=== PATIENT | male | born 1965 | race Caucasian/White ===

== ENCOUNTER 2020-01-28 19:21 | Emergency (ER) | payer OTHER ==
[~2020-01-28] VITALS: Ht 170.2 cm; Wt 92.1 kg
[2020-01-28] MEDS ORDERED: ZYRTEC10 M1 PO (19:37)
[2020-01-28] MEDS ORDERED: HYDR1TAB94 PO ×2 (19:38→21:26)
[2020-01-28] MEDS ORDERED: CYCL10 PO (19:38)
[2020-01-28] MEDS ORDERED: DYAZIDE 37.5-21 EACH PO (19:40)
[2020-01-28 20:08] LABS: BASOPHILS ABSOLUTE AUTO 0.05 K/mm3 (0.00-0.23); BASOPHILS PERCENT AUTO 1 % (0-2); EOSINOPHILS ABSOLUTE AUTO 0.18 K/mm3 (0.00-0.68); EOSINOPHILS PERCENT AUTO 2 % (0-6); Hematocrit 47.7 % (37.0-53.0); IMMATURE GRAN ABSOLUTE AUTO 0.21 K/mm3 (0.00-0.10); IMMATURE GRAN PERCENT AUTO 2 % (0-1); LYMPHOCYTES ABSOLUTE AUTO 1.71 K/mm3 (0.84-5.20); LYMPHOCYTES PERCENT AUTO 17 % (21-46); MONOCYTES ABSOLUTE AUTO 0.58 K/mm3 (0.16-1.47); MONOCYTES PERCENT AUTO 6 % (4-13); Mean Corpuscular HGB 33.3 pg (26.0-34.0); Mean Corpuscular HGB Conc 33.5 g/dL (31.5-36.5); Mean Corpuscular Volume 99 fL (80-100); Mean Platelet Volume 9.1 fL (9.1-12.4); NEUTROPHILS ABSOLUTE AUTO 7.47 K/mm3 (1.96-9.15); NEUTROPHILS PERCENT AUTO 73 % (41-73); Platelet Count 261 K/mm3 (150-400); RDW Coefficient Variation 12.3 % (11.7-14.2); RDW Standard Deviation 45.4 fL (35.1-46.3); Red Blood Cell Count 4.81 M/mm3 (4.30-5.90)
[2020-01-28 20:31] LABS: Alanine Aminotransfer (ALT/SGP 52 U/L (12-78); Albumin, Blood 3.7 g/dL (3.4-5.0); Albumin/Globulin Ratio 0.9 (0.8-1.8); Alk Phos 80 U/L (50-136); Anion Gap 12 mmol/L (6-16); Aspartate Aminotrans (AST/SGOT 33 U/L (12-37); Bilirubin, Total 0.5 mg/dL (0.1-1.0); Blood Urea Nitrogen 6 mg/dL (8-24); CO2, Blood 23 mmol/L (21-32); Calcium, Blood 8.2 mg/dL (8.5-10.1); Chloride, Blood 100 mmol/L (98-108); Creatinine, Blood 0.67 mg/dL (0.60-1.20); Ethanol (Alcohol), Blood, Med 292 mg/dL; Globulin, Blood 4.2 g/dL (2.2-4.0); Glomerular Filtration Rate >60 (60-); Glucose, Blood 104 mg/dL (70-99); Potassium, Blood 3.6 mmol/L (3.5-5.5); Sodium, Blood 135 mmol/L (136-145); Total Protein, Blood 7.9 g/dL (6.4-8.2); Troponin I <0.015 ng/mL (0.000-0.040)
== END 2020-01-28 22:22 | disposition home or self-care (01) ==
LOC: ER 19:21
PROVIDERS: Emergency Medicine
DX: S52.502A Unspecified fracture of the lower end of left radius, initial encounter for closed fracture (principal); S00.81XA Abrasion of other part of head, initial encounter; F17.200 Nicotine dependence, unspecified, uncomplicated; I10 Essential (primary) hypertension; Z79.899 Other long term (current) drug therapy; X58.XXXA Exposure to other specified factors, initial encounter
CPT/HCPCS: 29125; 36415; 70450; 71046; 72125; 73090; 73110; 80053; 84484; 85025; 93005; 93010; 99284-25; G0480

== ENCOUNTER 2020-02-28 06:40 | Day surgery (SDC) | payer OTHER ==
[~2020-02-28] VITALS: Ht 180.3 cm; Wt 87.8 kg
[~2020-02-28 06:40] MED LIST: CYCL10 PO; DYAZIDE 37.5-21 EACH PO; HYDR1TAB94 PO; ZYRTEC10 M1 PO
== END 2020-02-28 22:44 | disposition home or self-care (01) ==
LOC: ORSCMMR 06:40 → ORD 08:15 → ORSCMMR 22:44
PROVIDERS: Orthopaedic Surgery
PROC: 0PSJ04Z Reposition Left Radius with Internal Fixation Device, Open Approach (ICD-10-PCS; principal; 2020-02-28 09:15)
DX: W17.89XA Other fall from one level to another, initial encounter (principal); S52.502A Unspecified fracture of the lower end of left radius, initial encounter for closed fracture; I10 Essential (primary) hypertension; F17.210 Nicotine dependence, cigarettes, uncomplicated; Z79.899 Other long term (current) drug therapy
CPT/HCPCS: 73100; C1713; J0690; J1100; J1885; J2250; J2405; J2704; J3010; J7120

== ENCOUNTER 2020-12-09 04:04 | Observation (INO) | payer OTHER ==
[~2020-12-09] VITALS: Ht 180.3 cm; Wt 86.5 kg
[2020-12-09 04:41] LABS: BASOPHILS ABSOLUTE AUTO 0.11 K/mm3 (0.00-0.23); BASOPHILS PERCENT AUTO 1 % (0-2); EOSINOPHILS ABSOLUTE AUTO 0.37 K/mm3 (0.00-0.68); EOSINOPHILS PERCENT AUTO 3 % (0-6); Hemoglobin 16.1 g/dL (13.5-17.5); IMMATURE GRAN ABSOLUTE AUTO 0.07 K/mm3 (0.00-0.10); IMMATURE GRAN PERCENT AUTO 1 % (0-1); LYMPHOCYTES ABSOLUTE AUTO 1.09 K/mm3 (0.84-5.20); LYMPHOCYTES PERCENT AUTO 7 % (21-46); MONOCYTES PERCENT AUTO 9 % (4-13); Mean Corpuscular HGB 32.5 pg (26.0-34.0); Mean Corpuscular HGB Conc 34.3 g/dL (31.5-36.5); Mean Corpuscular Volume 95 fL (80-100); Mean Platelet Volume 9.1 fL (9.1-12.4); NEUTROPHILS ABSOLUTE AUTO 12.02 K/mm3 (1.96-9.15); NEUTROPHILS PERCENT AUTO 80 % (41-73); Platelet Count 289 K/mm3 (150-400); RDW Standard Deviation 42.4 fL (35.1-46.3); Red Blood Cell Count 4.95 M/mm3 (4.30-5.90); White Blood Cell Count 15.06 K/mm3 (4.00-11.30)
[2020-12-09 05:01] LABS: Alanine Aminotransfer (ALT/SGP 35 U/L (12-78); Albumin, Blood 3.8 g/dL (3.4-5.0); Albumin/Globulin Ratio 0.9 (0.8-1.8); Alk Phos 82 U/L (50-136); Anion Gap 9 mmol/L (6-16); Aspartate Aminotrans (AST/SGOT 29 U/L (12-37); Bilirubin, Total 1.2 mg/dL (0.1-1.0); Blood Urea Nitrogen 10 mg/dL (8-24); CO2, Blood 29 mmol/L (21-32); Chloride, Blood 97 mmol/L (98-108); Creatinine, Blood 0.77 mg/dL (0.60-1.20); Globulin, Blood 4.1 g/dL (2.2-4.0); Glomerular Filtration Rate >60 (60-); Glucose, Blood 93 mg/dL (70-99); Potassium, Blood 3.5 mmol/L (3.5-5.5); Sodium, Blood 135 mmol/L (136-145); Total Protein, Blood 7.9 g/dL (6.4-8.2)
[2020-12-09] MEDS ORDERED: HYDCHL25 PO (05:04)
[2020-12-09] MEDS ORDERED: OXYC5 PO (05:05)
--- NOTE | 2020-12-09 07:01 | NUR ---
0700 REPORT RECEIVED FROM NAVI RUIZ VIA ER; TO ROOM 364 PER CART FROM ER.
[2020-12-09 10:19] LABS: Influenza A, PCR NEGATIVE (NEGATIVE); Influenza B, PCR NEGATIVE (NEGATIVE); Resp Syncytial Virus, PCR NEGATIVE (NEGATIVE); SARS-Cov-2 (COVID-19) PCR, MMC NEGATIVE (NEGATIVE)
--- NOTE | 2020-12-09 17:41 | NUR ---
SHIFT SUMMARY PT TAKEN BACK FOR PEG PLACEMENT TODAY. HOWEVER, PT IS UNABLE TO BREATHE THROUGH HIS NOSTRILS AT THIS TIME, SO SURGERY WAS POSTPONED TILL TOMORROW WHEN ANASTHESIA IS AVAILABLE. PT TOLERATING LIQUIDS AT THIS TIME. TO BE NPO AT MIDNIGHT FOR PEG PLACEMENT. NO ACUTE CHANGES IN ASSESSMENT AT THIS TIME. VS REVIEWED & STABLE. PT C/O CONSTANT REED. AWARE & MEDS GIVEN ORDERED TO HELP. PT RESTING IN BED AT THIS TIME. CALL LIGHT IN REACH.
[2020-12-10 04:52] LABS: BASOPHILS PERCENT AUTO 1 % (0-2); EOSINOPHILS ABSOLUTE AUTO 0.47 K/mm3 (0.00-0.68); EOSINOPHILS PERCENT AUTO 5 % (0-6); Hematocrit 47.1 % (37.0-53.0); Hemoglobin 16.1 g/dL (13.5-17.5); IMMATURE GRAN ABSOLUTE AUTO 0.04 K/mm3 (0.00-0.10); IMMATURE GRAN PERCENT AUTO 0 % (0-1); LYMPHOCYTES ABSOLUTE AUTO 1.31 K/mm3 (0.84-5.20); LYMPHOCYTES PERCENT AUTO 13 % (21-46); MONOCYTES ABSOLUTE AUTO 1.37 K/mm3 (0.16-1.47); MONOCYTES PERCENT AUTO 14 % (4-13); Mean Corpuscular HGB 32.8 pg (26.0-34.0); Mean Corpuscular HGB Conc 34.2 g/dL (31.5-36.5); Mean Corpuscular Volume 96 fL (80-100); Mean Platelet Volume 9.2 fL (9.1-12.4); NEUTROPHILS ABSOLUTE AUTO 6.77 K/mm3 (1.96-9.15); NEUTROPHILS PERCENT AUTO 67 % (41-73); Platelet Count 278 K/mm3 (150-400); RDW Coefficient Variation 12.1 % (11.7-14.2); RDW Standard Deviation 42.5 fL (35.1-46.3); Red Blood Cell Count 4.91 M/mm3 (4.30-5.90); White Blood Cell Count 10.06 K/mm3 (4.00-11.30)
[2020-12-10 05:10] LABS: Albumin, Blood 3.4 g/dL (3.4-5.0); Anion Gap 6 mmol/L (6-16); Blood Urea Nitrogen 13 mg/dL (8-24); Bun/Creatinine Ratio 17.4 (12.0-20.0); CO2, Blood 31 mmol/L (21-32); Chloride, Blood 100 mmol/L (98-108); Creatinine, Blood 0.75 mg/dL (0.60-1.20); Glomerular Filtration Rate >60 (60-); Glucose, Blood 101 mg/dL (70-99); Phosphorus, Blood 3.9 mg/dL (2.5-4.9); Potassium, Blood 3.9 mmol/L (3.5-5.5); Sodium, Blood 137 mmol/L (136-145)
--- NOTE | 2020-12-10 06:00 | NUR ---
SHIFT SUMMARY A/O, ABLE TO MAKE NEEDS KNOWN. COOPERATIVE WITH CARE. ANSWERS QUESTIONS APPROPRIATELY. C/O PAIN/DISCOMFORT TO L HEAD/NECK; MEDICATED PER EMAR. ANXIOUS TO HAVE PEG TUBE PLACED THIS DAY. REMAINED NPO SINCE 0000 EXCEPT MEDS AND ICE CHIPS. ALSO WOULD REALLY LIKE TO MEET WITH PT AT SOME POINT TODAY. APPEARED TO REST MUCH OF THE NIGHT. INDEPENDENT IN THE ROOM. NO ACUTE CHANGES NOTED. BED REMAINED IN LOWEST POSITION. CALL LIGHT AND BELONGINGS WITHIN REACH. CONTINUE WITH CURRENT PLAN OF CARE. REPORT TO ONCOMING RN.
--- NOTE | 2020-12-10 10:23 | NUR ---
History, Chart, Medications and Allergies reviewed before start of procedure. Patient confirms NPO status and agrees with scheduled surgery.
--- NOTE | 2020-12-10 10:45 | NUR ---
LUNGS CLEAR T/O TO AUSCULTATION.
--- NOTE | 2020-12-10 11:25 | NUR ---
12/10/20 1125 Venu Wasserman History, Chart, Medications and Allergies reviewed before start of procedure.MONITOR INTACT WITH CONTINUOUS PULSE OXIMETRY AND INTERMITTENT BP.3-LEAD EKG REVIEWED WITH PHYSICIAN PRIOR TO START OF PROCEDURE.O2 VIA N/C INTACT THROUGHOUT SEDATION/PROCEDURE. See Anesthesia record.
--- NOTE | 2020-12-10 11:41 | NUR ---
PT NPO @ ONSET OF SHIFT FOR PEG TUBE PLACEMENT. OUT OF ROOM TO OR APPROX 1000
--- NOTE | 2020-12-10 15:37 | NUR ---
DR RABAGO ORDER FL DIET, ORDER OK TO USE PEG TUBE. DIE MACHINE OPERATOR IN TO SEE PT STATE HE HAS APPOINT @ [facility] TOM[facility]ROW w DIETICAIAN FOR PEG TUBE USE & TUBE FEEDING ORDER. PEG TUBE BASICS REVIEWED w PT & , TUBE FLUSHED w 60ML WATER. PT/ VERBALIZE UNDERSTANDING. PT STATE DESIRE FOR D/C HOME, DR ESPINOSA NOTIFIED.
[2020-12-10] MEDS ORDERED: ACET325 PO (16:45)
--- NOTE | 2020-12-10 17:11 | NUR ---
DISCHARGE DR FRANCISCA CLEARY D/C ORDERS. IV D/C INTACT. NO NEW SCRIPTS. PT DRESS/GATHER BELONGINGS IND. D/C INSTRUCT REVIEWED w PT & , EMPHASIS ON PEG TUBE USE & CARE, F/U APPTS, THEY VEBALIZE UNDERSTANDING. PT DECLINES W/C [facility], PREFERS TO AMBULATE. PLEASANT, APPRECIATIVE AFFECT, STATES SATISFACTION.
== END 2020-12-10 17:17 | disposition home or self-care (01) ==
LOC: ER 04:04 → MEDS 04:05
PROVIDERS: Emergency Medicine; Internal Medicine; Student in an Organized Health Care Education/Training Program; ADMIT Family Medicine
DX: C09.9 Malignant neoplasm of tonsil, unspecified (principal); R13.10 Dysphagia, unspecified; R42 Dizziness and giddiness; R51.9 Headache, unspecified; I10 Essential (primary) hypertension; F17.210 Nicotine dependence, cigarettes, uncomplicated; R62.7 Adult failure to thrive; L40.9 Psoriasis, unspecified; D72.829 Elevated white blood cell count, unspecified; E87.1 Hypo-osmolality and hyponatremia; T50.2X5A Adverse effect of carbonic-anhydrase inhibitors, benzothiadiazides and other diuretics, initial encounter; R09.81 Nasal congestion; Z68.27 Body mass index [BMI] 27.0-27.9, adult; Z20.822 Contact with and (suspected) exposure to COVID-19; Z85.72 Personal history of non-Hodgkin lymphomas
CPT/HCPCS: 0241U; 36415; 70450; 70490; 80053; 80069; 85025; 93005; 93010; 96365; 96375; 96376; 97112; 97161; 99285-25; A9270; C1769; G0378; J0690; J1885; J2704; J7120

== ENCOUNTER 2021-01-03 21:38 | Emergency (ER) | payer OTHER ==
[~2021-01-03] VITALS: Ht 177.8 cm; Wt 85.3 kg
[~2021-01-03 21:38] MED LIST changes: +ACET325 PO; +HYDCHL25 PO; +OXYC5 PO
[2021-01-03] MEDS ORDERED: Norco 10-325 T1 EACH PO (23:24)
== END 2021-01-05 00:44 | disposition home or self-care (01) ==
LOC: ER 21:38
DX: C76.0 Malignant neoplasm of head, face and neck (principal); R51.9 Headache, unspecified
CPT/HCPCS: 96372-59; 96374; 96375; 99284-25; J1200; J1885; J2405; J3010

== ENCOUNTER 2021-01-08 11:28 | Emergency (ER) | payer OTHER ==
[~2021-01-08] VITALS: Ht 180.3 cm; Wt 81.7 kg
[~2021-01-08 11:28] MED LIST changes: +Norco 10-325 T1 EACH PO
[2021-01-08 12:00] LABS: BASOPHILS PERCENT AUTO 1 % (0-2); EOSINOPHILS ABSOLUTE AUTO 0.18 K/mm3 (0.00-0.68); EOSINOPHILS PERCENT AUTO 2 % (0-6); Hematocrit 45.2 % (37.0-53.0); Hemoglobin 15.5 g/dL (13.5-17.5); IMMATURE GRAN ABSOLUTE AUTO 0.05 K/mm3 (0.00-0.10); IMMATURE GRAN PERCENT AUTO 0 % (0-1); LYMPHOCYTES ABSOLUTE AUTO 0.81 K/mm3 (0.84-5.20); LYMPHOCYTES PERCENT AUTO 7 % (21-46); MONOCYTES ABSOLUTE AUTO 0.73 K/mm3 (0.16-1.47); MONOCYTES PERCENT AUTO 6 % (4-13); Mean Corpuscular HGB 32.5 pg (26.0-34.0); Mean Corpuscular HGB Conc 34.3 g/dL (31.5-36.5); Mean Corpuscular Volume 95 fL (80-100); Mean Platelet Volume 9.8 fL (9.1-12.4); NEUTROPHILS ABSOLUTE AUTO 10.14 K/mm3 (1.96-9.15); NEUTROPHILS PERCENT AUTO 85 % (41-73); Platelet Count 309 K/mm3 (150-400); RDW Coefficient Variation 11.8 % (11.7-14.2); RDW Standard Deviation 41.6 fL (35.1-46.3); Red Blood Cell Count 4.77 M/mm3 (4.30-5.90); White Blood Cell Count 12.01 K/mm3 (4.00-11.30)
[2021-01-08 12:12] LABS: Alanine Aminotransfer (ALT/SGP 129 U/L (12-78); Albumin, Blood 3.5 g/dL (3.4-5.0); Albumin/Globulin Ratio 0.9 (0.8-1.8); Alk Phos 81 U/L (50-136); Anion Gap 5 mmol/L (6-16); Aspartate Aminotrans (AST/SGOT 68 U/L (12-37); Bilirubin, Total 1.9 mg/dL (0.1-1.0); Blood Urea Nitrogen 15 mg/dL (8-24); Bun/Creatinine Ratio 19.7 (12.0-20.0); CO2, Blood 30 mmol/L (21-32); Calcium, Blood 8.6 mg/dL (8.5-10.1); Chloride, Blood 103 mmol/L (98-108); Creatinine, Blood 0.76 mg/dL (0.60-1.20); Globulin, Blood 3.8 g/dL (2.2-4.0); Glomerular Filtration Rate >60 (60-); Glucose, Blood 124 mg/dL (70-99); Sodium, Blood 138 mmol/L (136-145); Total Protein, Blood 7.3 g/dL (6.4-8.2); Troponin I <0.015 ng/mL (0.000-0.040)
[2021-01-08] MEDS ORDERED: Narcan 0.40.4 MG/ML IM (14:10)
== END 2021-01-08 16:00 | disposition home or self-care (01) ==
LOC: ER 11:28
PROVIDERS: Emergency Medicine
DX: T40.2X1A Poisoning by other opioids, accidental (unintentional), initial encounter (principal); R55 Syncope and collapse; I10 Essential (primary) hypertension; C76.0 Malignant neoplasm of head, face and neck; Z88.8 Allergy status to other drugs, medicaments and biological substances; Z79.899 Other long term (current) drug therapy; F17.210 Nicotine dependence, cigarettes, uncomplicated
CPT/HCPCS: 36415; 70496; 70498; 71046; 80053; 83880; 84484; 85025; 93005; 93010; 96365-59; 99285-25; Q9967

== ENCOUNTER 2021-01-11 00:57 | Day surgery (SDC) | payer OTHER ==
[~2021-01-11 00:57] MED LIST changes: +Narcan 0.40.4 MG/ML IM
[2021-01-11] MEDS ORDERED: ONDA4 PO (11:26)
[2021-01-12] MEDS ORDERED: Imitrex25 MG PO (18:55)
== END 2021-01-11 12:15 | disposition home or self-care (01) ==
LOC: ATC 00:57
DX: C09.8 Malignant neoplasm of overlapping sites of tonsil (principal); G89.3 Neoplasm related pain (acute) (chronic); I10 Essential (primary) hypertension; F17.210 Nicotine dependence, cigarettes, uncomplicated; R11.0 Nausea; R13.10 Dysphagia, unspecified
CPT/HCPCS: 96360; J7030

== ENCOUNTER 2021-01-12 15:54 | Emergency (ER) | payer OTHER ==
[~2021-01-12] VITALS: Ht 175.3 cm; Wt 83.9 kg
[~2021-01-12 15:54] MED LIST changes: +ONDA4 PO
[2021-01-12] MEDS ORDERED: Imitrex25 MG PO (18:55)
== END 2021-01-12 19:05 | disposition home or self-care (01) ==
LOC: ER 15:54
DX: R51.9 Headache, unspecified (principal); F17.210 Nicotine dependence, cigarettes, uncomplicated; Z79.899 Other long term (current) drug therapy
CPT/HCPCS: 36415; 96365; 96372-59; 96375; 99283-25; J1100; J1200; J1885; J2765; J3030; J3475; J7030

== ENCOUNTER 2021-10-04 09:39 | Day surgery (SDC) | payer OTHER ==
[~2021-10-04] VITALS: Ht 180.3 cm; Wt 60.8 kg
[~2021-10-04 09:39] MED LIST changes: +Imitrex25 MG PO; +OLAN2.5 PO
--- NOTE | 2021-10-04 10:47 | NUR ---
Ambulatory in Day Surgery. PT HAS BANDAID OVER CENTER CHEST STATES HIS "BIOPSY AREA WAS LEAKING SO I COVERED IT". History, Chart, Medications and Allergies reviewed before start of procedure.Patient confirms NPO status and agrees with scheduled surgery. Patient reports completing Chlorhexadine shower X2 prior to admission to hospital.Lungs clear T/O to Auscultation. Patient States Post-Procedure ride home has been arranged WITH .
[2021-10-04 11:03] LABS: Anion Gap 11 mmol/L (6-16); Blood Urea Nitrogen 5 mg/dL (8-24); Bun/Creatinine Ratio 10.3 (12.0-20.0); CO2, Blood 28 mmol/L (21-32); Calcium, Blood 9.3 mg/dL (8.5-10.1); Chloride, Blood 94 mmol/L (98-108); Creatinine, Blood 0.49 mg/dL (0.60-1.20); Glomerular Filtration Rate >60 (60-); Glucose, Blood 91 mg/dL (70-99); Potassium, Blood 4.4 mmol/L (3.5-5.5); Sodium, Blood 133 mmol/L (136-145)
--- NOTE | 2021-10-04 11:34 | NUR ---
RN NOTIFIED DR. LANDON OF PT BANDAGED AREA FROM BIOPSY. DR. LANDON AT BEDSIDE TO ASSESS AREA.
--- NOTE | 2021-10-04 14:12 | NUR ---
Patient up to Ambulate independently. Gait steady. Discharge instructions reviewed with patient. Patient verbalizes understanding. Copy given to patient to take home. Discharged via wheelchair to private car for ride home WITH . MARCOLEX CALLED INTO [facility]. PATIENT HAS OWN PAIN AND NAUSEA MEDICATION AT HOME. DENIES QUESTIONS OR CONCERNS.
== END 2021-10-04 22:51 | disposition home or self-care (01) ==
LOC: ORSCMMR 09:39 → ORD 11:00 → ORSCMMR 22:51
PROVIDERS: Student in an Organized Health Care Education/Training Program; Surgery
PROC: 05HM33Z Insertion of Infusion Device into Right Internal Jugular Vein, Percutaneous Approach (ICD-10-PCS; principal; 2021-10-04 11:00)
PROC: B543ZZA Ultrasonography of Right Jugular Veins, Guidance (ICD-10-PCS; principal; 2021-10-04 11:00)
DX: C09.8 Malignant neoplasm of overlapping sites of tonsil (principal); I10 Essential (primary) hypertension; F17.210 Nicotine dependence, cigarettes, uncomplicated; K21.9 Gastro-esophageal reflux disease without esophagitis; Z79.899 Other long term (current) drug therapy
CPT/HCPCS: 77001; 80048; 93005; 93010; A9270; C1788; J0171; J0690; J1100; J1170; J1642; J1885; J2405; J2550; J2704; J3010; J7120

== ENCOUNTER 2022-06-23 15:37 | Inpatient (IN) | payer OTHER ==
[~2022-06-23] VITALS: Ht 177.8 cm; Wt 59.0 kg
[~2022-06-23 15:37] MED LIST changes: +ALPR1 PO; +ESCI5 PO; +NYSTATIN100000 UN1 SS
[2022-06-23 16:04] LABS: BASOPHILS ABSOLUTE AUTO 0.06 K/mm3 (0.00-0.23); BASOPHILS PERCENT AUTO 0 % (0-2); EOSINOPHILS ABSOLUTE AUTO 0.11 K/mm3 (0.00-0.68); EOSINOPHILS PERCENT AUTO 1 % (0-6); Hematocrit 37.9 % (37.0-53.0); Hemoglobin 13.7 g/dL (13.5-17.5); IMMATURE GRAN ABSOLUTE AUTO 0.17 K/mm3 (0.00-0.10); IMMATURE GRAN PERCENT AUTO 1 % (0-1); LYMPHOCYTES ABSOLUTE AUTO 0.48 K/mm3 (0.84-5.20); LYMPHOCYTES PERCENT AUTO 3 % (21-46); MONOCYTES ABSOLUTE AUTO 1.95 K/mm3 (0.16-1.47); MONOCYTES PERCENT AUTO 13 % (4-13); Mean Corpuscular HGB 33.7 pg (26.0-34.0); Mean Corpuscular HGB Conc 36.1 g/dL (31.5-36.5); Mean Corpuscular Volume 93 fL (80-100); Mean Platelet Volume 8.3 fL (9.1-12.4); NEUTROPHILS ABSOLUTE AUTO 11.88 K/mm3 (1.96-9.15); NEUTROPHILS PERCENT AUTO 81 % (41-73); Platelet Count 413 K/mm3 (150-400); RDW Standard Deviation 41.2 fL (35.1-46.3); Red Blood Cell Count 4.07 M/mm3 (4.30-5.90); White Blood Cell Count 14.65 K/mm3 (4.00-11.30)
[2022-06-23 16:21] LABS: Albumin, Blood 2.2 g/dL (3.4-5.0); Albumin/Globulin Ratio 0.6 (0.8-1.8); Bilirubin, Total 0.5 mg/dL (0.1-1.0); Bun/Creatinine Ratio 13.4 (12.0-20.0); Calcium, Blood 8.1 mg/dL (8.5-10.1); Creatinine, Blood 0.52 mg/dL (0.60-1.20); Potassium, Blood 3.5 mmol/L (3.5-5.5); Total Protein, Blood 6.2 g/dL (6.4-8.2)
[2022-06-23] MEDS ORDERED: SILDENAFIL CIT100 MG PO (16:39)
[2022-06-23] MEDS ORDERED: HYDROCHLOROTHIA25 MG PO (16:40)
[2022-06-23] MEDS ORDERED: TRIA50 PO (16:40)
[2022-06-23 16:58] LABS: Influenza A, PCR NEGATIVE (NEGATIVE); Influenza B, PCR NEGATIVE (NEGATIVE); Resp Syncytial Virus, PCR NEGATIVE (NEGATIVE); SARS-Cov-2 (COVID-19) PCR, MMC NEGATIVE (NEGATIVE)
[2022-06-23 17:07] LABS: International Normalized Ratio 1.04; Prothrombin Time Results 10.9 Sec (9.7-11.5)
[2022-06-23] MEDS ORDERED: Ativan1 MG PO (20:40)
[2022-06-23] MEDS ORDERED: CYCLOBENZAPRINE5 MG PO (21:02)
[2022-06-23] MEDS ORDERED: OXYCODONE HCL PO (21:03)
[2022-06-24 04:00] LABS: BASOPHILS ABSOLUTE AUTO 0.09 K/mm3 (0.00-0.23); BASOPHILS PERCENT AUTO 1 % (0-2); EOSINOPHILS ABSOLUTE AUTO 0.24 K/mm3 (0.00-0.68); EOSINOPHILS PERCENT AUTO 2 % (0-6); Hematocrit 39.5 % (37.0-53.0); Hemoglobin 13.9 g/dL (13.5-17.5); IMMATURE GRAN ABSOLUTE AUTO 0.15 K/mm3 (0.00-0.10); IMMATURE GRAN PERCENT AUTO 1 % (0-1); LYMPHOCYTES ABSOLUTE AUTO 0.34 K/mm3 (0.84-5.20); LYMPHOCYTES PERCENT AUTO 3 % (21-46); MONOCYTES ABSOLUTE AUTO 1.93 K/mm3 (0.16-1.47); MONOCYTES PERCENT AUTO 14 % (4-13); Mean Corpuscular HGB 33.6 pg (26.0-34.0); Mean Corpuscular HGB Conc 35.2 g/dL (31.5-36.5); Mean Corpuscular Volume 95 fL (80-100); Mean Platelet Volume 8.5 fL (9.1-12.4); NEUTROPHILS ABSOLUTE AUTO 10.72 K/mm3 (1.96-9.15); NEUTROPHILS PERCENT AUTO 80 % (41-73); Platelet Count 396 K/mm3 (150-400); RDW Coefficient Variation 12.2 % (11.7-14.2); RDW Standard Deviation 42.6 fL (35.1-46.3); Red Blood Cell Count 4.14 M/mm3 (4.30-5.90); White Blood Cell Count 13.47 K/mm3 (4.00-11.30)
[2022-06-24 04:23] LABS: Albumin, Blood 1.9 g/dL (3.4-5.0); Albumin/Globulin Ratio 0.5 (0.8-1.8); Bilirubin, Total 0.7 mg/dL (0.1-1.0); Bun/Creatinine Ratio 10.8 (12.0-20.0); Calcium, Blood 7.4 mg/dL (8.5-10.1); Creatinine, Blood 0.55 mg/dL (0.60-1.20); Globulin, Blood 3.6 g/dL (2.2-4.0); Potassium, Blood 3.6 mmol/L (3.5-5.5); Total Protein, Blood 5.5 g/dL (6.4-8.2)
--- NOTE | 2022-06-24 05:21 | NUR ---
SHIFT SUMMARY PT ADMITTED TO UNIT. AXO. ON 4LNC. IN SR. VSS. PT WALKED INTO BED. NO ASSIST. CONTINENT. COARSE LUNG SOUUNDS T/O. NPO FOR SPEECH THERAPY. ADMISSION COMPLETED. PT HAS BEEN TITRATED DOWN TO 2LNC, OCCASIONALLY DESATS WITH ACTIVITY BUT AT REST REMAINS >94%. OTHERWISE, PT RESTING IN ROOM QUIETELY.
--- NOTE | 2022-06-24 08:00 | NUR ---
Recieved report from Noc RN. Patient is sitting up in bed awake and is able to communicate his needs. he is on 2L via NC and sats 97% at rest. He has RAC 18ga IV with NS at 100 ml/hr. He uses urinal appropriately and has clear yellow urine output and there was 300 mls. I placed him on RA and has been satting 93-95%.He is NPO until ST evals. ABRAHAM but weak.
--- NOTE | 2022-06-24 10:16 | NUR ---
ST by and passed for [facility] soft and talked with him about outside ST as well. He is tolerating ice water without difficulty. He remains on RA with out activity in bed and sats >90%. Dr Escobar has made him Med no tele.
--- NOTE | 2022-06-24 11:41 | NUR ---
No other significant changes with patient. He was up to bathroom on RA and sats dropped to 88% and when back to bed came up above 90% quickly. VSS no other changes.
--- NOTE | 2022-06-24 14:41 | NUR ---
Patient has been resting awake and talking on the phone. He remains on RA and sats in the mid 90%'s. He has been tolerating liquids and Mech soft diet well. He has been up to bathroom as well as using urinal.
--- NOTE | 2022-06-24 17:23 | NUR ---
Patient remains alert and oriented and is able to communicate his needs. He calls appropriately when needing bathroom. He is on RA and at rest sats mid to upper 90%'s and when up may drop to 88%. He has a RAC 18ga IV that is infusingNS TKO and intermitent ABX that will stop tonite, see cam.notify. He has tolerated intake per order. VSS. He is independent with care.
--- NOTE | 2022-06-25 06:26 | NUR ---
SERVICE ORDER CLERK SUMMARY PT IS ALERT AND ORIENTED COMMUNICATING APPROPRIATELY W STAFF. PT WAS ABLE TO MAINTAIN O2 SATS >90% ON RM AIR WHEN LYING IN BED HOWEVER, THE PT'S O2 SATS WOULD DROP TO THE LOW 80'S WHEN HE WAS AMBULATING REQUIRING 2-4L NC TO RECOVER. PT REMAINED ON 2L NC WHILE HE SLEPT W O2 SATS 90%-92% ALL NIGHT. PT'S BP WNL AND STABLE THIS SHIFT. PT AFEBRILE THIS SHIFT. PT WAS ABLE TO SLEEP COMFORTABLY FOR MOST OF THE NIGHT W THE CALL LIGHT WITHIN REACH. WILL REPORT TOP ONCOMING RN.
--- NOTE | 2022-06-25 16:19 | NUR ---
SHIFT SUMMARY: PT. IS A&OX4, AMBULATES W/ SBA, BUT DESATURATES DOWN INTO THE 80'S W/ ACTIVITY. UPON THE BEGINING OF THE SHIFT, THE PT. WAS SET TO GO HOME AFTER RT. PREFROMS A HOME O2 EVALUATION. THE PT. FAILED THE STUDY AND DESATURATED TO 78% FROM JUST STANDING AT THE BEDSIDE. THE PT. REQUIRES 15L HIGH FLOW NC, TO HELP REGAIN O2 > 90%. AFTER WORKING W/ PT, THE PATIENT WAS SUSTAINING IN WITH THE SPO2 IN THE 80'S AND REQUIRED A NONREBREATHER AT 15 L AND HIGH FLOW NC AT 10 L, TO SUSTAIN SPO2 > 90'S. CALLED, AND PT. HAD BIPAP ON STAND BY DUE TO INCREASE OF O2 DEMAND, AND IS PUT BACK PCU STATUS. PT. HAD A CT. SCAN TO AND RESULTS ARE PENDING. PT. IS CALM, BUT GETS TACHYPENIC. TELEMETRY PLACED ON PT. AND WILL CONTINUE TO MONITOR.
[2022-06-26 03:48] LABS: BASOPHILS ABSOLUTE AUTO 0.08 K/mm3 (0.00-0.23); BASOPHILS PERCENT AUTO 1 % (0-2); EOSINOPHILS ABSOLUTE AUTO 0.14 K/mm3 (0.00-0.68); EOSINOPHILS PERCENT AUTO 1 % (0-6); Hematocrit 36.3 % (37.0-53.0); Hemoglobin 12.5 g/dL (13.5-17.5); IMMATURE GRAN ABSOLUTE AUTO 0.12 K/mm3 (0.00-0.10); IMMATURE GRAN PERCENT AUTO 1 % (0-1); LYMPHOCYTES ABSOLUTE AUTO 0.42 K/mm3 (0.84-5.20); LYMPHOCYTES PERCENT AUTO 3 % (21-46); MONOCYTES ABSOLUTE AUTO 2.24 K/mm3 (0.16-1.47); MONOCYTES PERCENT AUTO 16 % (4-13); Mean Corpuscular HGB 32.7 pg (26.0-34.0); Mean Corpuscular HGB Conc 34.4 g/dL (31.5-36.5); Mean Corpuscular Volume 95 fL (80-100); Mean Platelet Volume 8.4 fL (9.1-12.4); NEUTROPHILS ABSOLUTE AUTO 10.67 K/mm3 (1.96-9.15); NEUTROPHILS PERCENT AUTO 78 % (41-73); Platelet Count 414 K/mm3 (150-400); RDW Coefficient Variation 12.4 % (11.7-14.2); Red Blood Cell Count 3.82 M/mm3 (4.30-5.90); White Blood Cell Count 13.67 K/mm3 (4.00-11.30)
[2022-06-26 04:21] LABS: Albumin, Blood 1.6 g/dL (3.4-5.0); Albumin/Globulin Ratio 0.5 (0.8-1.8); Bilirubin, Total 0.6 mg/dL (0.1-1.0); Bun/Creatinine Ratio 10.4 (12.0-20.0); Calcium, Blood 7.3 mg/dL (8.5-10.1); Creatinine, Blood 0.58 mg/dL (0.60-1.20); Globulin, Blood 3.5 g/dL (2.2-4.0); Potassium, Blood 3.8 mmol/L (3.5-5.5); Total Protein, Blood 5.1 g/dL (6.4-8.2)
--- NOTE | 2022-06-26 06:46 | NUR ---
UPON ASSUMPTION OF CARE. MR. LOPEZ WAS ON THE BIPAP WITH SETTINGS OF 12/8 AT 45%. LATER IN THE NIGHT. AN ATTEMPT WAS MADE TO GO BACK TO NASAL CANNULA AT HIS PREVIOUS 10 LPM. THIS FAILED, PATIENT COULD NOT MAINTAIN AND OXYGEN SATURATION GREATER THAN 90% OF MUCH 15 LPM. BIPAP WAS PLACED BACK ON THE PATIENT. IN THE 2300 HOUR, OUR RESPIRATORY THERAPIST REMOVED THE BIPAP PATIENT DENIED SHORTNESS OF BRATH AND REPORTED TO THE RT THAT HIS OXYGEN LEVELS DROP ONLY WITH ACTIVITY AND NOT WHILE AT REST. INITIALLY, PATIENT WAS ON 10 LPM AND EVENTUALLY LANDED ON 14 LPM THE SETTING WHERE HE WAS ABLE TO MAINTAIN HIS OXYGEN SATURATIONS AT 92 OR GREATER. ACTIVITY MINIMAL SITTING UP IN BED CAUSES MR. LOPEZ'S OXYGEN LEVELS TO DROP INTO THE 82 - 85 PERCENTILE RANGE. MR. LOPEZ REMAINED ON 14 LPM FOR THE REMAINDER OF THE NIGHT.
--- NOTE | 2022-06-26 13:58 | NUR ---
UPDATE PT WAS UP TO BEDSIDE FOR URINAL USE. PT ON HFNC 60L/50%, SATS DROPPED TO HIGH 80'S ONVE PT WAS TRYING TO GET BACK INTO BED AFTER ELIMINATION. FIO2 BUMPED TO 1005 FOR 2 MINUTES DUE TO PT REPORTING FEELING SOB. PT ON HIS FEET FOR ROUGHLY 4 MIN.
--- NOTE | 2022-06-26 17:05 | NUR ---
SHIFT SUMMARY PT A/O X4 AND COOPERATIVE OF CARE. PT ON 14L NC THIS AM, SATS IN THE LOW 90'S. PT WOULD DESAT QUICKLY TO THE HIGH 70'S WHEN STANDING AT EDGE OF BED. RT SWITCHED PT TO HFNC AT 60L/ 50%, PT SATS IN THE HIGH 90;S ON NEW SETTINGS. PT WOULD DESAT TO THE HIGH 80'S WHILE ON NEW SETTINGS AND RETURN TO 90'S QUICKLY WHEN AT REST. HFNC TITRATED TO 50L/50% BY RT, PT SATS MAINTAINING IN HIGH 90'S. PT RESPIRATIONS SLIGHTLY TACHY DURING SHIFT.OTHER VSS THROUGHOUT SHIFT. NO REPORT OF CHEST PAIN/PRESSURE THROUGHOUT SHIFT. PT DOES REPORT SOB WHEN STANDING FOR A FEW MINUTES AT A TIME, STATES "WHEN I TAKE A DEEP BREATH I FEEL LIKE I COULD STILL TAKE IN A DEEPER BREATH BUT CAN'T." PT TEMP WASS LITTLE ELEVATED TOWARDS END OF SHIFT, TYLENOL GIVEN PER EMAR. PT CALLS APPROPIATE AND FOLLOWS INSTRUCTIONS WELL. PT WORKED [facility], SEE THERAPY NOTES.
[2022-06-27 04:26] LABS: Hematocrit 37.4 % (37.0-53.0); Hemoglobin 13.2 g/dL (13.5-17.5); Mean Corpuscular HGB Conc 35.3 g/dL (31.5-36.5); Mean Corpuscular Volume 94 fL (80-100); Mean Platelet Volume 8.3 fL (9.1-12.4); Platelet Count 400 K/mm3 (150-400); RDW Coefficient Variation 12.1 % (11.7-14.2); RDW Standard Deviation 41.8 fL (35.1-46.3); White Blood Cell Count 16.71 K/mm3 (4.00-11.30)
[2022-06-27 04:42] LABS: Bun/Creatinine Ratio 17.1 (12.0-20.0); Calcium, Blood 7.2 mg/dL (8.5-10.1); Creatinine, Blood 0.41 mg/dL (0.60-1.20); Potassium, Blood 3.9 mmol/L (3.5-5.5)
--- NOTE | 2022-06-27 16:41 | NUR ---
SHIFT SUMMARY PT A/O X 4 AND COOPERATIVE OF CARE. PT SLIGHTLY FEBRILE DURING SHIFT AND REPORTED HEADACHES, TREATED PER EMAR. PT WAS UP TO BEDSIDE FOR USE OF URINAL MULTIPLE TIMES, SATS DROPPED INTO MID 80'S ON HFNC 45L/35%, FIO2 RAISED TO 100% FOR 2MNUTES FOR RECOVERY NEEDED. PT DID REPORT PERIODS OF SOB WHEN UP IN ROOM. OTHER VSS THROUGHOUT SHIFT. PT HAD BARIUM SWALLOW PERFORMED, SHOWED THAT PT ASPIRATES ON THIN LIQUIDS, SEE BARIUM SWALLOW NOTES. NO REPORT OF CHEST PAIN/PRESSURE THROUGHOUT SHIFT. PT CALS APPROPIATE AND VERBALIZES UNDERSTANDING OF SPEECH THERAPIES INSTRUCTIONS, SEE BARIUM SWALLOW NOTES.
--- NOTE | 2022-06-28 06:22 | NUR ---
SHIFT SUMMARY PT ALERT AND ORIENTED X4. THERE HAVE BEEN NO ACUTE CHANGES T/O THE SHIFT. VITLAS ARE STABLE. PT REMAINS ON 40L 35% ON AIRVO WITH SATS ABOVE 90%. HE DOSE DESAT WITH EXERTION. PT DENIES CHEST PAIN/PRESSURE. PT IS ABLE TO STAND UP AT BEDSIDE TO USE URINAL WITH SBA. USES CALL LIGHT APPROPRIETLY. CALL LIGHT IS WITHIN REACH.
--- NOTE | 2022-06-28 18:32 | NUR ---
SHIFT SUMMARY PT A/O X4 AND COOPERATIVE OF CARE. PT O2 SATS STILL DROPPING TO 80'S WITH EXERTION ON CURRENT HFNC 40L/35% FIO2. OTHER VSS STABLE THROUGHOUT SHIFT. PT NOT REPORTING SOB EVEN WITH SATS DROPPING TO 80'S. PT SATS TEND TO DROP WHILE PT IS EATING DUE TO PT HOLD BREATH WHILE CHEWING AND SLOWLY TUCKING CHIN AND SWALLOWING. SPEECH THRAPIST CHANGED DIET TO PUREE, PT "NOT CRAZY ABOUT PUREED FOOD." PT HAS BEEN DRINKING ENSURES FROM [employer]. PT NEEDING FREQUENT REMINDERS TO TAKE SMALL SIPS AND TUCK CHIN WHILE DRINKING. PT WAS UP TO USE URINAL AT BEDSIDE MULTIPLE TIE DURING SHIFT, SATS HOLD STABLE IN 90'S UNTIL PT BEGINS CLIMBING BACK INTO BED, SATS DROP TO MID 80'S. RT ATTEMPTED TO HAVE PT SWITH TO NC AT 6-10L, PT DID NOT TOLERATE AND WAS SWITHED BACK TO HIGH FLOW. PT WORKED WITH PHYSICAL THERAPY, DESATED WHEN SITTING AT EDGE OF BED, SEE THERAPIST'S NOTE.
[2022-06-29 04:17] LABS: Hematocrit 36.9 % (37.0-53.0); Hemoglobin 12.7 g/dL (13.5-17.5); Mean Corpuscular HGB 32.8 pg (26.0-34.0); Mean Corpuscular HGB Conc 34.4 g/dL (31.5-36.5); Mean Corpuscular Volume 95 fL (80-100); Mean Platelet Volume 8.3 fL (9.1-12.4); Platelet Count 417 K/mm3 (150-400); RDW Coefficient Variation 12.4 % (11.7-14.2); RDW Standard Deviation 43.3 fL (35.1-46.3); Red Blood Cell Count 3.87 M/mm3 (4.30-5.90); White Blood Cell Count 15.04 K/mm3 (4.00-11.30)
[2022-06-29 04:36] LABS: Bun/Creatinine Ratio 12.1 (12.0-20.0); Calcium, Blood 8.1 mg/dL (8.5-10.1); Creatinine, Blood 0.58 mg/dL (0.60-1.20); Potassium, Blood 4.6 mmol/L (3.5-5.5)
--- NOTE | 2022-06-29 06:35 | NUR ---
SHIFT SUMMARY PT ALERT AND ORIENTED X4. THERE HAVE BEEN NO ACUTE CHANGES T/O THE NIGHT. VITALS ARE STABLE. PT REMAINS ON HFT 35L 35% FIO2 WITH SATS ABOVE 90%, WILL DESAT WITH EXERTION. PT DENIES CHEST PAIN/PRESSURE. CALL LIGHT IS WITHIN REACH.
--- NOTE | 2022-06-29 18:36 | NUR ---
SHIFT SUMMARY RT TRIED TO TRANSITION PT TO 8L NC TODAY, PT TOLERATED THAT FOR ABOUT 2HR THEN DESATURATED DURING LUNCH AND WAS PLACED BACK ON THE AIRVO AT 35L/30% FiO2. SpO2 REMAINED >92% ON BOTH OF THOSE ONLY DESATURATING TO THE LOW 80's WITH ACTIVITY AND EATING. BP STABLE, HR WAS SR-ST, 80-110'S. PT DENIES FEELING SOB. WILL CONTINUE TO MONITOR AND PROVIDE CARE UNTIL REPORT TO NOC.
--- NOTE | 2022-06-30 06:06 | NUR ---
SHIFT SUMMARY PT IS ALERT AND ORIENTED. THERE HAVE BEEN NO ACUTE CHANGES T/O TE NIGHT. VITALS ARE STBALE AND IS CURRENTLY ON HFT 35L 35 FIO2 WITH SATS ABOVE 90%, HE DESATS WITH EXERTION INTO THE HIGH 70'S LOW 80'S. PT ESTELLA CHEST PAIN/PRESSURE OR SOB. HE IS ABLE TO USE BSC OR URINAL AT BEDSIDE WITH SBA. CALL LIGHT IS WITHIN REACH.
--- NOTE | 2022-06-30 18:05 | NUR ---
SHIFT SUMMARY RT DECIDED NOT TO TRY TRANSITIONING PT OFF OF AIRVO TODAY. SpO2> 92% WITH AIRVO SETTINGS AT 35L/35% FiO2, ONLY DESATURATING TO LOW 80'S WITH ACTIVITY AND EATING. BP STABLE, NSR-ST 70-100's. PT DENIES FEELING SOB. CHEST X-RAY TOMORROW WITH HOPES TO FIGURE OUT WHY HIS OXYGEN NEEDS ARE NOT IMPROVING. WILL CONTINUE TO MONITOR AND PROVIDE CARE UNTIL REPORT TO NOC.
--- NOTE | 2022-07-01 06:24 | NUR ---
CALLED DR BROWN REGARDING PT'S 2V XRAY FOR THIS MORNING. CALLED TO SEE IF IT COULD BE CHANGED TO 1V XRAY SO THAT PORTABLE COULD BE USED. PT IS UNABLE TO USE A NASAL CANULA AND WILL HAVE TO GOT TO DOWN FOR THAT CERTAIN 2V XRAY. Addendum: 07/01/22 at 0622 by Joellen Shrestha RN NO ANSWER FROM DR BROWN.
--- NOTE | 2022-07-01 06:25 | NUR ---
SHIFT SUMMARY PT IS ALERT AND ORIENTED. THERE HAVE BEEN NO ACUTE CHANGES T/O THE NIGHT. VITALS ARE STABLE AND REMAINS ON HHFT 35L 35% FIO2 WITH SATS >90%. HE DOES DESAT INTO THE LOW 80'S WHEN GETTING UP AND AT 100% HHFT. HFNC WAS ATTEMPTED BY RT AT BEGINING OF SHIFT BUT PT COULD WAS SATING IN THE 80'S. PT DENIES CHEST PAIN/PRESSURE. USES URINAL AT BEDISDE OR PIVOTS TO BSC. CALL LIGHT IS WITHIN REACH.
--- NOTE | 2022-07-01 17:59 | NUR ---
SHIFT SUMMARY A&Ox4, BP STABLE, NSR-ST 70-100's. SpO2> 92% VIA ARIVO SET TO 35L/45% FiO2. PT DESATURATES TO LOW 80'S WITH ACTIVITY, SUCH SITTING UP AT THE EDGE OF THE BED. CHEST X-RAY DONE TODAY. PT DENIES CP OR SOB. WILL CONTINUE TO MONITOR AND PROVIDE CARE UNTIL REPORT TO NOC.
[2022-07-02 04:14] LABS: BASOPHILS ABSOLUTE AUTO 0.11 K/mm3 (0.00-0.23); BASOPHILS PERCENT AUTO 1 % (0-2); EOSINOPHILS ABSOLUTE AUTO 0.17 K/mm3 (0.00-0.68); EOSINOPHILS PERCENT AUTO 1 % (0-6); Hematocrit 38.5 % (37.0-53.0); Hemoglobin 13.4 g/dL (13.5-17.5); IMMATURE GRAN ABSOLUTE AUTO 0.19 K/mm3 (0.00-0.10); IMMATURE GRAN PERCENT AUTO 1 % (0-1); LYMPHOCYTES ABSOLUTE AUTO 0.42 K/mm3 (0.84-5.20); LYMPHOCYTES PERCENT AUTO 2 % (21-46); MONOCYTES ABSOLUTE AUTO 2.17 K/mm3 (0.16-1.47); MONOCYTES PERCENT AUTO 12 % (4-13); Mean Corpuscular HGB 32.8 pg (26.0-34.0); Mean Corpuscular HGB Conc 34.8 g/dL (31.5-36.5); Mean Corpuscular Volume 94 fL (80-100); Mean Platelet Volume 8.6 fL (9.1-12.4); NEUTROPHILS ABSOLUTE AUTO 15.03 K/mm3 (1.96-9.15); NEUTROPHILS PERCENT AUTO 83 % (41-73); Platelet Count 499 K/mm3 (150-400); RDW Coefficient Variation 12.2 % (11.7-14.2); RDW Standard Deviation 42.5 fL (35.1-46.3); Red Blood Cell Count 4.09 M/mm3 (4.30-5.90); White Blood Cell Count 18.09 K/mm3 (4.00-11.30)
[2022-07-02 04:36] LABS: Bun/Creatinine Ratio 48.1 (12.0-20.0); Calcium, Blood 7.9 mg/dL (8.5-10.1); Creatinine, Blood 0.19 mg/dL (0.60-1.20); Potassium, Blood 4.3 mmol/L (3.5-5.5)
--- NOTE | 2022-07-02 08:30 | NUR ---
ASSUMPTION OF CARE ROZ MCELROY AND YUVAL MCELROY ASSUMED CARE OF PATIENT AT 0700. REPORT TAKEN FROM SALVADOR CMELROY. PT RESTING COMFORTABLY. VSS. AIRVO ON AT 35L AND 55% FIO2. BED IN LOWEST POSITION AND CALL LIGHT WITHIN REACH
--- NOTE | 2022-07-02 10:53 | NUR ---
PATIENT UPDATE PATIENT WAS PREVIOUSLY WORKING WITH THE SPEECH THERAPIST WITH AIRVO ON AT 35L AND FIO2 55%. DUE TO CONTINUED SOB AND O2 DROPPING WHILE WORKING WITH THERAPIST, RT WAS CONSULTED. CRACKLES HEARD IN BASES AND PT WAS SWITCHED TO BIPAP AT 18/10 WITH 65% FIO2. PATIENT'S CURRENT SPO2 IS 90-92% WITH THOSE BIPAP SETTINGS. RR CONTINUES TO BE 26-30. CONTINUOUS O2 MONITORING IN PLACE. BED IN LOWEST POSITION WITH CALL LIGHT IN REACH. PT VERBALIZING COMFORT.
--- NOTE | 2022-07-02 13:28 | NUR ---
PATIENT UPDATE. PATIENT PUT BACK ON AIRVO AT 45L AND 65% FIO2 FOR MEDICAITON ADMINISTRATION. PATIENT WAS PUT ON 100% O2 DUE TO CONTINUED DESATTING. 02 DROPPED TO 85% WHILE GETTING 100% FIO2. CURRENTLY AT 91% WHILE AT REST WITH CONTINUED 100% FIO2. DUE TO CONTINUED NEED FOR 100% FIO2 AND THE PATIENT WANTING TO GO BACK TO SLEEP, PT WAS PUT BACK ON THE BIPAP WITH THE PREVIOUS SETTINGS OF 18/10 AND 65%. PATIENT MAINTAINING SATS 88% WITH 100% FIO2 AFTER INITIAL SWITCH. AFTER AN ADDITIONAL 4 MINUTES OF 100% FIO2 PATIENT WAS ABLE TO RETURN TO 65% FIO2 WITH O2 SATS AT >90% WITH RR 26-28.
--- NOTE | 2022-07-02 15:30 | NUR ---
PATIENT UPDATE AFTER TALKING WITH RT ABOUT PATIENT'S RESPIRATORY STATUS, WE DECIDED TO TRANSFER THE PATIENT TO THE BEDSIDE RECLINER FOR A CHANGE OF POSITION TO HELP THE LUNGS BETTER EXPAND. THE PATIENT WAS ON THE BIPAP WITH 18/10 AND 65% FIO2 WITH O2 SATS AT 96% PRIOR TO TRANSFERRING. PATIENT WAS GIVEN 100% FIO2 PRIOR TO GETTING UP FOR 4 MINUTES, WITH O2 SATS REACHING 99%. PATIENT TRANSFERRED WELL WITH SBA. CONTINUED 100% FIO2 GIVEN. PATIENT DROPPED TO 85% AFTER TRANSFERRING TO CHAIR. FIO2 WAS CONTINUED AT 100% FOR 6 MORE MINUTES WITH THE PATIENT REACHING 90% AFTERWARDS WITH SETTINGS BACK AT 65% FIO2. WILL CONTINUE TO MONITOR WHILE PATIENT IS IN RECLINER WITH CONTINUOUS SPO2 MONITORING. BED LINEN CHANGED AND CALL LIGHT GIVEN TO PATIENT.
--- NOTE | 2022-07-02 16:41 | NUR ---
PATIENT UPDATE PATIENT WAS ABLE TO SIT IN RECLINER FOR APPROXIMATELY 20 MINUTES WITH O2 SATS AT 90% WITH BIPAP AT 18/10 AND 65% FIO2. AFTER THOSE 20 MINUTES THE PATIENT BEGAN DESATTING PROGRESSIVELY REQUIRING 100 FIO2 TO MAINTAIN O2 SATS BETWEEN 82-85%. RT LUKE TO BEDSIDE TO ASSIST IN TRANSFER BACK TO BED. CONTINUED 100 FIO2 WITH CHANGE TO BIPAP SETTINGS TO 18/12 WITH 100% FIO2. PATIENTS O2 WAS AT 88% AT TIME OF TRANSFER. PATIENT WAS ABLE TO MAINTAIN O2 SATURATION AT 88% WITH BIPAP SETTINGS, HOWEVER, PATIENT BEGAN TO COUGH AND STATED THAT HE NEEDED TO "THROW UP". SWITCHED PATIENT TO AIRVO AND EMESIS BAG GIVEN TO PATIENT. YELLOW MUCUS NOTED IN BAG. DURING COUGHING SPELL PATIENT'S O2 SATS DROPPED TO 70%. THIS RN, YUVAL MCELROY, AND RT BUTLER REMAINED AT BEDSIDE. STEPHANIE FULTON ARRIVED TO ROOM FOR UPDATE ON PATIENT. PATIENTS STATUS WAS EXPLAINED, ALONG WITH THE ACTIVITIES THAT LEAD TO THE EXERTION AND THE INTERVENTIONS STATED PREVIOUSLY. MD BROWN VERBALIZED THAT THE PATIENT SHOULD BE TRANSFERRED TO THE ICU DUE TO THE CONTINUED INCREASED NEED FOR BIPAP AND MAXED OUT SETTINGS ON BIPAP/AIRVO. PATIENT WAS TRANSFERRED TO ICU RM 6 WITH RT. BEDSIDE REPORT WAS GIVEN TO DANK MCELROY UPON ARRIVAL.
--- NOTE | 2022-07-02 17:05 | NUR ---
TRANSFER TO ICU PT ARRIVES TO ICU AT 1630 FROM PCU FOR DESATURATION. ARRIVES ON AIRVO 60L/100%. PT SPEAKING IN FULL SENTANCES. PT P/W/D. ENCOURAGED DEEP BREATHING. ON ARRIVAL, AIRVO UNPLUGGED, ONCE REATTACHED, O2 SAT INCREASED FROM 77% TO 100%. CURRENTLY TITRATING O2 DOWN, 60L/70% AT THIS TIME. NO DISTRESS NOTED. RESTING IN BED. ABLE TO HELP c REPOSITIONS AND TURNS. ST ON MONITOR, RATE 90-100. BP STABLE. WILL CONTINUE TO MONITOR UNTIL ONCOMING NURSE.
--- NOTE | 2022-07-02 19:00 | NUR ---
ASSUMED CARE OF PATIENT AT THIS TIME. PATIENT RESTING COMFORTABLY. VSS, ON AIRVO 60L 60%. ACCESSED PORT PER ORDER TO ADMINISTER INCOMPATIBLE MEDICATIONS. SWAPNA SHIPLEY RN
[2022-07-03 04:07] LABS: BASOPHILS ABSOLUTE AUTO 0.11 K/mm3 (0.00-0.23); BASOPHILS PERCENT AUTO 1 % (0-2); EOSINOPHILS PERCENT AUTO 1 % (0-6); Hematocrit 36.9 % (37.0-53.0); Hemoglobin 12.8 g/dL (13.5-17.5); IMMATURE GRAN ABSOLUTE AUTO 0.17 K/mm3 (0.00-0.10); IMMATURE GRAN PERCENT AUTO 1 % (0-1); LYMPHOCYTES ABSOLUTE AUTO 0.58 K/mm3 (0.84-5.20); LYMPHOCYTES PERCENT AUTO 3 % (21-46); MONOCYTES ABSOLUTE AUTO 2.15 K/mm3 (0.16-1.47); MONOCYTES PERCENT AUTO 12 % (4-13); Mean Corpuscular HGB 32.5 pg (26.0-34.0); Mean Corpuscular HGB Conc 34.7 g/dL (31.5-36.5); Mean Corpuscular Volume 94 fL (80-100); Mean Platelet Volume 8.6 fL (9.1-12.4); NEUTROPHILS ABSOLUTE AUTO 15.42 K/mm3 (1.96-9.15); NEUTROPHILS PERCENT AUTO 83 % (41-73); Platelet Count 554 K/mm3 (150-400); RDW Coefficient Variation 12.3 % (11.7-14.2); RDW Standard Deviation 43.1 fL (35.1-46.3); Red Blood Cell Count 3.94 M/mm3 (4.30-5.90); White Blood Cell Count 18.53 K/mm3 (4.00-11.30)
[2022-07-03 04:30] LABS: Albumin, Blood 1.5 g/dL (3.4-5.0); Albumin/Globulin Ratio 0.3 (0.8-1.8); Bilirubin, Total 0.4 mg/dL (0.1-1.0); Bun/Creatinine Ratio 21.3 (12.0-20.0); Calcium, Blood 7.8 mg/dL (8.5-10.1); Creatinine, Blood 0.52 mg/dL (0.60-1.20); Globulin, Blood 4.6 g/dL (2.2-4.0); Potassium, Blood 3.9 mmol/L (3.5-5.5); Total Protein, Blood 6.1 g/dL (6.4-8.2)
--- NOTE | 2022-07-03 06:13 | NUR ---
SHIFT SUMMARY PATIENT RESTED THROUGHOUT EVENING. FREQUENT EPISODES OF COUGHING WITH PRODUCTIVE SPUTUM. ONE EPISODE OF EMESIS WITH NAUSEA RELIEF FROM MEDICATION. AIRVO TITRATED TO 60L 50%. DESATS WITH MINOR EXERTION AND REQUIRES LENGTHY RECOVERY TIME. TKO RUNNING THROUGH [employer]. ONE BM THIS AM ON BEDPAN. BRENDAN SHIPLEY RN
--- NOTE | 2022-07-03 07:19 | NUR ---
ASSUMED CARE OF PT AT 0700 PT RESTING IN ROOM. NO VISITORS AT THIS TIME. TKO RUNNING TO PORT AND POWERGLIDE. AIRVO FLOW OF 60 AT 50%. SEE ASSESSMENT FOR MORE INFORMATION.
--- NOTE | 2022-07-03 10:56 | NUR ---
SPOKE WITH FAMILY IN ROOM WITH PT. UPDATED ON STATUS AND PLAN FOR PEGG TUBE PLACEMENT.
--- NOTE | 2022-07-03 15:05 | NUR ---
CALL FROM DEBBIE @ DR VILLALOBOS OFFICE TO UPDATE DR GREEN ON PT STATUS.
--- NOTE | 2022-07-03 17:27 | NUR ---
END OF SHIFT SUMMARY A/O X4. AIRVO RUNNING CURRENTLY AT 60/55% . DESATS TO LOW 80'S WITH ANY EXERTION. NO PT TODAY DUE TO BEDREST AND REST DAY. TKO RUNNING AT 10 MLS/HR. ZOSYN CURRENTLY RUNNING ORDERED. FAMILY IN ROOM INTERMITTENTLY THROUGHOUT THE DAY. NO CARDIAC ISSUES DURING THIS SHIFT. VITALS WNL WITH EXCEPTION OF O2 SATS WITH EXERTION. NO BOWEL MOVEMENT TODAY. SCANT URINE OUTPUT. PEGG TUBE TO BE PLACED 07/04. NPO UNTIL FURTHER NOTICE. PRODUCTIVE COUGH WITH MODERATE AMOUNT OF LIMA SPUTUM.
[2022-07-03 19:15] LABS: Vancomycin, Trough 14.7 ug/mL (5.0-10.0)
[2022-07-04 04:03] LABS: BASOPHILS ABSOLUTE AUTO 0.11 K/mm3 (0.00-0.23); BASOPHILS PERCENT AUTO 1 % (0-2); EOSINOPHILS ABSOLUTE AUTO 0.18 K/mm3 (0.00-0.68); EOSINOPHILS PERCENT AUTO 1 % (0-6); Hematocrit 37.9 % (37.0-53.0); Hemoglobin 13.1 g/dL (13.5-17.5); IMMATURE GRAN PERCENT AUTO 1 % (0-1); LYMPHOCYTES ABSOLUTE AUTO 0.43 K/mm3 (0.84-5.20); LYMPHOCYTES PERCENT AUTO 2 % (21-46); MONOCYTES ABSOLUTE AUTO 2.17 K/mm3 (0.16-1.47); MONOCYTES PERCENT AUTO 11 % (4-13); Mean Corpuscular HGB 32.8 pg (26.0-34.0); Mean Corpuscular HGB Conc 34.6 g/dL (31.5-36.5); Mean Corpuscular Volume 95 fL (80-100); Mean Platelet Volume 8.6 fL (9.1-12.4); NEUTROPHILS ABSOLUTE AUTO 15.91 K/mm3 (1.96-9.15); NEUTROPHILS PERCENT AUTO 84 % (41-73); Platelet Count 586 K/mm3 (150-400); RDW Coefficient Variation 12.1 % (11.7-14.2); RDW Standard Deviation 42.5 fL (35.1-46.3)
[2022-07-04 04:32] LABS: Albumin, Blood 1.6 g/dL (3.4-5.0); Albumin/Globulin Ratio 0.3 (0.8-1.8); Bilirubin, Total 0.3 mg/dL (0.1-1.0); Bun/Creatinine Ratio 27.7 (12.0-20.0); Calcium, Blood 7.5 mg/dL (8.5-10.1); Creatinine, Blood 0.51 mg/dL (0.60-1.20); Globulin, Blood 4.7 g/dL (2.2-4.0); Potassium, Blood 3.9 mmol/L (3.5-5.5); Total Protein, Blood 6.3 g/dL (6.4-8.2)
--- NOTE | 2022-07-04 05:44 | NUR ---
End of shift summary No acute changes overnight. Pt stable on arvo 60L and 55%. Pt remains NPO for feeding tube placement. Pt does use ice chips to moisten mouth. Pt able to turn self in bed lift hips and alleviate pressure to coccyx. Blood drawn from power glide Caps changed and line flushed after draw per protocol. Will give report to oncoming RN.
--- NOTE | 2022-07-04 07:31 | NUR ---
TOOK OVER CARE OF PT AT 0700. PT ON AIRVO 60L 55%.
--- NOTE | 2022-07-04 14:02 | NUR ---
07/04/22 1402 Shania Brennan MAC CASE WITH DR. WADE IN ICU06; SEE ANESTHESIA RECORDS.
--- NOTE | 2022-07-04 17:22 | NUR ---
SUMMARY NEURO: WNL, GENERALIZED WEAKNESS LUNGS: DIMINISHED THROUGHOUT BUT CLEAR. PT IS ON 60L HFNC 100%. CLEAR/FOAMY SPUTUM. PT PULLING 1000ML ON INCENTIVE SPIROMETER AND USING FLUTTER VALVE. CARDIAC: NSR, PULSES PALPABLE. GI: PEG TUBE PLACED AT 1300 TODAY. : LOW URINE OUTPUT, JESU
[2022-07-05 04:24] LABS: BASOPHILS ABSOLUTE AUTO 0.08 K/mm3 (0.00-0.23); BASOPHILS PERCENT AUTO 0 % (0-2); EOSINOPHILS ABSOLUTE AUTO 0.08 K/mm3 (0.00-0.68); EOSINOPHILS PERCENT AUTO 0 % (0-6); Hematocrit 37.5 % (37.0-53.0); Hemoglobin 12.7 g/dL (13.5-17.5); IMMATURE GRAN ABSOLUTE AUTO 0.19 K/mm3 (0.00-0.10); IMMATURE GRAN PERCENT AUTO 1 % (0-1); LYMPHOCYTES ABSOLUTE AUTO 0.31 K/mm3 (0.84-5.20); LYMPHOCYTES PERCENT AUTO 2 % (21-46); MONOCYTES ABSOLUTE AUTO 2.02 K/mm3 (0.16-1.47); MONOCYTES PERCENT AUTO 10 % (4-13); Mean Corpuscular HGB 31.9 pg (26.0-34.0); Mean Corpuscular HGB Conc 33.9 g/dL (31.5-36.5); Mean Corpuscular Volume 94 fL (80-100); Mean Platelet Volume 8.6 fL (9.1-12.4); NEUTROPHILS ABSOLUTE AUTO 16.91 K/mm3 (1.96-9.15); NEUTROPHILS PERCENT AUTO 86 % (41-73); Platelet Count 561 K/mm3 (150-400); RDW Coefficient Variation 11.9 % (11.7-14.2); RDW Standard Deviation 41.5 fL (35.1-46.3); Red Blood Cell Count 3.98 M/mm3 (4.30-5.90); White Blood Cell Count 19.59 K/mm3 (4.00-11.30)
[2022-07-05 04:56] LABS: Bun/Creatinine Ratio 25.6 (12.0-20.0); Creatinine, Blood 0.43 mg/dL (0.60-1.20)
--- NOTE | 2022-07-05 06:19 | NUR ---
END OF SHIFT SUMMARY NO ACUTE CHANGES OVERNIGHT. PT PAIN CONTROLLED WITH IV PUSH FENTANYL. PT DID GET NAUSEATED AND THAT WAS RELIEVED WITH PHENERGAN. PEG TUBE WAS PLACE 07-04-22 @ 1300 CAN BE USED AFTER 1300 ON 07-05-22. PT THIN AND FRAGILE. PT ABLE TO FREQUENTLY REPOSITION SELF IN BED. PT DOES DESAT WITH MOVMENT. PT ON 60L AND 90% ON ARIVO. WILL GIVE BEDSIDE REPORT TO ONCOMING RN.
--- NOTE | 2022-07-05 09:44 | NUR ---
ASSUMED CARE OF PT, REPORT RCV'D FROM NAVI RAMIREZ. PT ALERT AND ORIENTED, PLEASANT AND COOPERATIVE WITH CARE. PT REPORT 7/10 ABDOMINAL PAIN, TREATED PER EMAR. PT REPORTS INTERMITTANT NAUSEA, NO VOMITTING. AIRVO 60L, FI02 DECREASED FROM 90% TO 60%, SATS CURRENTLY 92%. LUNG SOUNDS DIM T/O. PEG TUBE SITE CLEAN/DRY. VSS AT THIS TIME. PT'S SISTER AND MOTHER AT BEDSIDE, UPDATED WITH PT'S STATUS AND PLAN OF CARE. SEE FULL SHIFT ASSESSMENT.
--- NOTE | 2022-07-05 12:45 | NUR ---
PT REPORTING NAUSEA, 1 EPISODE OF EMESIS. HOB RAISED, PT IMMEDIATELY DESATS. FI02 INCREASED TO 100% TO MAINTAIN SATS>90. PT REPORTS 7/10 PAIN AROUND PEG TUBE SITE. PT TREATED FOR NAUSEA AND PAIN PER EMAR.
--- NOTE | 2022-07-05 13:12 | NUR ---
Supportive visit this afternoon. Spoke with Primary RN Jesus and discussed case. Pt resting in bed with his eyes closed. Pt wakes to gentle verbal stimuli. Pt appears moderately lethargic and reports being tired. Pt does report 7/10 pain at PEG Tube insertion site. Reviewed plan of care and offered supportive visit. Ended visit to allow Pt to rest. Palliative Care will remain available.
--- NOTE | 2022-07-05 17:19 | NUR ---
PT REPORTING INCREASING NAUSEA AND FEELING LIKE "BILE IS GOING INTO MY LUNGS". FI02 INCREASED TO 100% D/T SATS IN MID 80'S. SATS CURRENTLY 91%. DR ESCOBAR NOTIFIED. ORDER TO STOP TUBE FEEDS, START REGLAN AND TRY CPAP.
--- NOTE | 2022-07-05 18:18 | NUR ---
SHIFT SUMMARY PT CURRENTLY ON BIPAP 29/06, RATE 12, 95% FI02, PT FAIL CPAP TRIAL. CURRENT SATS 91-92%, RR 30-45, TACHYCARDIC. PT REPORTS INTERMITTENT NAUSEA, FEELS LIKE HE IS ASPIRATING STOMACH ACID. TUBE FEEDING PLACED ON HOLD PER ORDER. PT CONTINUES TO BE ALERT AND ORIENTED, LETHARGIC. USES CALL LIGHT APPROPRIATELY. WILL REPORT TO ONCOMING NURSE.
--- NOTE | 2022-07-05 18:36 | NUR ---
PT CONTINUES TO BE TACHYCARDIC WITH RR IN THE MID 40'S. DECISION MADE TO INTUBATE PATIENT FOLLOWING NOTIFICATION OF FAMILY. DISCUSSED PLAN WITH PT WHO IS AGREEABLE. PTS SISTER AND MOTHER AT BEDSIDE, CALLED PT'S SON EKTA AND DISCUSSED PLAN TO INTUBATE. ATTEMPTED TO CALL PT'S ОЛЕГ, NO ANSWER AND MAILBOX FULL. RESPIRATORY THERAPY NOTIFIED.
--- NOTE | 2022-07-05 20:42 | NUR ---
ASSUMED CARE OF PT AT 1915. REPORT RECEIVED AT BEDSIDE. PT PRESENTS IN BED. BIPAP IN PLACE. PT IS ABLE TO EXPECTORATE YELLOW COLORED SECRETIONS. USES [place] TO SELF SUCTION. PT DENIES PAIN. IS ABLE TO UNDERSTAND AND FOLLOW CONVERSATION ABOUT BEING INTUBATED. PT'S MOTHER AND HIS SISTER HAVE JUST GONE HOME FOR THE NIGHT. HAVE SPOKEN TO PT'S PER TELEPHONE. UPDATE GIVEN. EXPLAINED THAT PLAN FOR INTUBATION THIS EVENING WAS IN PLACE. WILL REVIEW CHART AND PLAN OF CARE FOR THIS PT.
[2022-07-05 23:27] LABS: Source, Urine Foley catheter
[2022-07-05 23:37] LABS: Bilirubin, Urine Neg (Neg); Blood, Urine 4+ (Neg); Glucose Qualitative, Urine Neg (Neg); Ketones, Urine 2+ (Neg); Leukocyte Esterase, Urine Neg (Neg); Nitrite, Urine Neg (Neg); Protein, Urine 2+ (Neg); Specific Gravity, Urine 1.015 (1.003-1.022); Urobilinogen, Urine NORM (Normal)
[2022-07-05 23:46] LABS: Appearance, Urine Clear (Clear); Color, Urine Yellow (P-Yellow)
[2022-07-05 23:47] LABS: Amorphous Light (0-Heavy); Bacteria Not Seen /hpf; Red Blood Cells, Urine 0-2 /hpf (0-2); Squamous Epithelial Cells Not Seen /hpf (Few); White Blood Cells, Urine Not Seen /hpf (0-5)
--- NOTE | 2022-07-06 | NUR ---
DR VELIZ COMES TO ROOM AND INTUBATION OF PT TAKES PLACE AT 2206 THIS EVENING. PT DOES HAVE DESATURATION AFTER THIS. SEE VS FLOWSHEET FOR DETAILS. PROPOFL HAS BEEN INITIATED AND TITRATED TO 50 MCG'S FOR VENT TOLERANCE. HAVE SPOKEN TO DR ESCOBAR PER PHONE WITH PT'S POOR SATURATIONS. DID RECEIVE ORDERS. RT HAS BEEN IN ROOM DURING POST INTUBATION TO ASSIST IN REGAINING SATURATIONS. PT ALSO MEDICATED WITH TYLENOL PER PEG TUBE FOR FEVER OF 102.0 PT TACHYCARDIC. OVERBREATHES VENT. SEE VS FLOWSHEET FOR VITALS.
[2022-07-06 00:16] LABS: PCO2 Arterial 43.2 mmHg (35-45); pH Blood Arterial 7.47 (7.35-7.45)
[2022-07-06 00:18] LABS: PO2 Arterial 45.2 mmHg (80-100)
[2022-07-06 03:22] LABS: BASOPHILS ABSOLUTE AUTO 0.09 K/mm3 (0.00-0.23); BASOPHILS PERCENT AUTO 0 % (0-2); EOSINOPHILS ABSOLUTE AUTO 0.07 K/mm3 (0.00-0.68); EOSINOPHILS PERCENT AUTO 0 % (0-6); Hematocrit 36.1 % (37.0-53.0); Hemoglobin 12.6 g/dL (13.5-17.5); IMMATURE GRAN ABSOLUTE AUTO 0.22 K/mm3 (0.00-0.10); IMMATURE GRAN PERCENT AUTO 1 % (0-1); LYMPHOCYTES ABSOLUTE AUTO 0.46 K/mm3 (0.84-5.20); LYMPHOCYTES PERCENT AUTO 2 % (21-46); MONOCYTES ABSOLUTE AUTO 2.58 K/mm3 (0.16-1.47); MONOCYTES PERCENT AUTO 11 % (4-13); Mean Corpuscular HGB Conc 34.9 g/dL (31.5-36.5); Mean Corpuscular Volume 95 fL (80-100); Mean Platelet Volume 8.9 fL (9.1-12.4); NEUTROPHILS ABSOLUTE AUTO 20.83 K/mm3 (1.96-9.15); NEUTROPHILS PERCENT AUTO 86 % (41-73); Platelet Count 551 K/mm3 (150-400); RDW Coefficient Variation 12.1 % (11.7-14.2); RDW Standard Deviation 42.3 fL (35.1-46.3); Red Blood Cell Count 3.82 M/mm3 (4.30-5.90); White Blood Cell Count 24.25 K/mm3 (4.00-11.30)
--- NOTE | 2022-07-06 03:54 | NUR ---
PT HAS BEEN PRONE SECONDARY TO PT'S FAILURE TO MAINTAIN SATURATIONS > 85 PERCENT. CALL ALSO MADE TO DR ESCOBAR. ORDERS RECEIVED. PT PLACED IN [place] POSITION WHICH HAS ASSISTED PT TO SATURATIONS 90-92 PERCENT. BLOOD PRESSURES REMAINS HYPOTENSIVE 89/63 BEING LAST OBTAINED VALUE. WILL CALL FOR PRESSOR IF NEEDED. BLOOD CULTURES HAVE BEEN OBTAINED. WILL CONTINUE TO MONITOR.
[2022-07-06 04:16] LABS: Albumin, Blood 1.5 g/dL (3.4-5.0); Albumin/Globulin Ratio 0.3 (0.8-1.8); Bilirubin, Total 0.4 mg/dL (0.1-1.0); Bun/Creatinine Ratio 29.2 (12.0-20.0); Calcium, Blood 7.1 mg/dL (8.5-10.1); Creatinine, Blood 0.45 mg/dL (0.60-1.20); Globulin, Blood 4.4 g/dL (2.2-4.0); Magnesium, Blood 2.5 mg/dL (1.6-2.4); Potassium, Blood 3.4 mmol/L (3.5-5.5); Total Protein, Blood 5.9 g/dL (6.4-8.2)
[2022-07-06 05:03] LABS: PCO2 Arterial 48.8 mmHg (35-45); PO2 Arterial 53.3 mmHg (80-100); pH Blood Arterial 7.44 (7.35-7.45)
--- NOTE | 2022-07-06 08:03 | NUR ---
ASSUMPTION OF CARE RECEIVED REPORT FROM TOÑO MCELROY AT 0715, ASSUMED CARE OF PATIENT. PATIENT PRONED, HEAD TURNED TO LEFT SIDE. INTUBATED ETT 8.0, 28CM AT THE GUMS. VENT SETTINGS AC/PC //100%. SP02 ABOVE 95%, SUCTIONED COPIOUS AMOUNTS OF THICK, [place] SPUTUM ORALLY AND VIA ETT. SEDATION BISS OF 40-50, PROPOFOL AT 75MCG/KG, PRECEDEX ON STANDBY, NIMBEX AT 2MCG/KG/MIN. TOF 4/4. TEMP ESCOBAR PATENT, DRAINING CLEAR, JESU URINE. TEMP READING BELOW 95 VIA TEMP ESCOBAR PROBE, 96.[address] ESCOBAR TO ROOM AT 0740, REVIEWED CURRENT TREATMENT PLAN, LABS AND VITALS. WILL REVIEW ORDERS AND CONTINUE TO TREAT PRESCRIBED.
[2022-07-06 08:27] LABS: PCO2 Arterial 74.2 mmHg (35-45); pH Blood Arterial 7.28 (7.35-7.45)
--- NOTE | 2022-07-06 18:25 | NUR ---
SHIFT SUMMARY ASSESSMENT PREVIOUSLY CHARTED. SPOKE WIHT DR. ESCOBAR AT 1400 TO CLARIFY PRONATION. RECEIVED DIRECTION TO LEAVE PATIENT PRONED UNTIL 1600, SUPINATE FOR 8 HOURS IF TOLERATED. PATIENT BEGAN HAVING PERIODS OF LOW SATURATIONS IN THE 80'S. FI02 WAS INCREASED TO 100% WITH PEEP AT 16. AT 1600 RT CONCERNED ABOUT SUPINATING PATIENT WITH VENT SETTINGS, RN AGREED. HEAD TURNED COMPLETED WITH 3 STAFF MEMBERS. PATIENT BEGAN DESATING TO LOW 80'S, B/P DECREASED. CALLED DR. ESCOBAR AT 1605, RECEIVED ORDERS TO INCREASE PEEP TO 18, RESP. RATE TO 30 AND START LEVOPHED. PATIENT BEGAN DECLINING. RT TO ROOM AND BEGAN BAGGING PATIENT VIA ETT AT 1610, BAGGED PATIENT FOR 15 MINUTES UNTIL SP02 IN LOW 90'S. ONCE PLACED BACK ONTO VENT PATIENT BEGAN DESATTING QUICKLY AND REQUIRED BAGGING AGAIN. DR. ESCOBAR NOTIFIED AND CAME TO ROOM AT 1630. PATIENT'S CALLED, AND MOTHER AND SISTER NOTIFIED TO COME TO ROOM. DR. ESCOBAR SPOKE WITH ОЛЕГ VIA T/P AT 1645 AND EXPLAINED PATIENT'S CRITICAL STATUS. DISCUSSED CODE STATUS, PATIENT'S TO SPEAK WITH PATIENT'S SON TO MAKE A DECISION. AWAITING SON TO ARRIVE TO ROOM, PATIENT'S SISTER CALLED SON AT 1650 AND AGAIN AT 1815. BOTH TIMES RECEIVED AN ANSWER THAT HE WAS ON HIS WAY. PATIENTS' MOTHER AND SISTER CONTINUED TO ASK IF WE COULD STOP CURRENT CARE THIS WAS NOT WHAT HE WANTED. EXPLAINED PATIENT'S CODE STATUS FULL AND THAT HIS NEXT OF KIN WOULD NEED TO MAKE THE FINAL DECISION. FAMILY VERBALIZED UNDERSTANDING. DURING THIS TIME, RT CONTINUED TO BAG PATIENT UNTIL 1830. DR. ESCOBAR NOTIFIED AGAIN OF CONTINUED BAGGING AND THAT SON HAS NOT ARRIVED. RECEIVED ORDERS TO PLACE BACK ON VENT WITH PEEP 18 AND FI02 100%. CURRENT SP02 87%. ORAL CARE AND OTHER EVENING MEDICATIONS HELD DUE TO CRITICAL CONDITION. NIMBEX WAS PLACED ON STANDBY CHARTED PER DR. ESCOBAR'S DIRECTIONS, SEDATION OF PROPOFOL AND PRECEDEX TO CONTINUE WITH BIS 40-50. WILL CONTINUE TREATMENT PRESCRIBED, AND REPORT TO ONCOMING RN.
--- NOTE | 2022-07-06 18:52 | NUR ---
SON EKTA TO ROOM AT 1845, DISCUSSED AT BEDSIDE THAT HE WANTED TO MAKE HIS FATHER A DNR AND HE CALLED HIS MOTHER ОЛЕГ TO CONFIRM WISHES. NOTIFIED DR. ESCOBAR AND CHANGED CODE STATUS TO DNR.
--- NOTE | 2022-07-06 19:15 | NUR ---
PATIENTS SON EKTA IN TO SEE PATIENT AND AFTER TALKING WITH FAMILY AND PATIENTS ON THE PHONE HAS DECIDED TO STOP LIFE SUPPORT AND MAKE PATIENT COMFORT CARE. CALL PLACED TO DOCTOR SHAWN SEE NEW ORDERS. PATIENT REMAINS PRONE WITH ETT IN PLACE VENT RESP 30 PEEP 18 FIO2 100% LEVOPHED 5MCG, PRECEDEX 0.7, PROPOFOL 65. NIMBEX REMAINS OFF. NO MOVEMENT SEEN IN EXTREMITIES. FAMILY AT BEDSIDE
--- NOTE | 2022-07-06 20:15 | NUR ---
COMFORT CARE AFTER OK VIA [employer]INEER, FROM [employer], RT CALLED TO EXTUBATE PATIENT. 1999 IV FLUIDS AND LEVOPHED OFF AND PATIENT PLACE SUPINE AFTER SUCTIONING ETT AND ORAL PATIENT EXTUBATED. 2004 PRECEDEX, PROPOFOL, AND FENTANYL IV OFF AND FAMILY RETURNS TO BEDSIDE.
--- NOTE | 2022-07-06 20:49 | NUR ---
PATIENT NOW FULL COMFORT CARE FAMILY AT BEDSIDE. HEART RATE 105 AND RESP SHALLOW 20'S FAMILY AT BEDSIDE
--- NOTE | 2022-07-06 20:55 | NUR ---
PATIENTS BELONGINGS SENT HOME WITH PATIENTS KAYLA DASH
--- NOTE | 2022-07-06 21:23 | NUR ---
PATIENT OPENS EYES SLIGHTLY TO VERBAL STIMULI, NODS SLIGHTLY NO TO PAIN YES TO NAUSEA SLIGHT SHIVER SEEN
--- NOTE | 2022-07-06 21:37 | NUR ---
PATIENT ABLE TO TALK TO HIS MOM ON THE TELEPHONE WITH SISTER HOLDING PHONE. ABLE TO SPEAK CLEARLY AND WHEN ASKED IF HE WANTED EVERYTHING RESTARTED BY HIS MOTHER HE SAID "LET ME GO" . WARM BLANKET AND ORAL CARE DONE FOR COMFORT. CONTINUE COMFORT CARE
--- NOTE | 2022-07-06 22:24 | NUR ---
PLAN TO TRANSFER PATIENT TO ROOM 302 REPORT GIVEN TO MARIA L MCELROY
--- NOTE | 2022-07-06 23:30 | NUR ---
07/06/222309 Patient arrived via bed to rm 302. Pt having some discomfort with moving to other bed. Pt states several times, "let me go". Pt reassured that we would give him something for pain and that he was free to "go" when he was ready. 2324 Pt medicated with 2mg IV morphine. Patient is thin, eyes are swollen. He has mepilex to j carlos knees. Martin catheter is in place with dk yellow urine. Will continue to monitor to keep pt comfortable.
--- NOTE | 2022-07-07 04:09 | NUR ---
0130 TO 0345 PATIENT HAVING INCREASED DIFFICULTY BREATHING, UNABLE TO GET COMFORTABLE, MEDICATED WITH ATIVAN 1MG IV, WITH MINIMAL RELIEF, MEDICATED WITH ROXANOL 10MG THEN FOLLOWED BY THE OTHER 10MG FOR AIR HUNGER AND AGGITATION. PT WITH A LARGE AMOUNT OF THICK SPUTUM, AMY ORAL SUCTION FREQ FOR ALMOST AN HOUR. O2 ON FOR COMFORT. NURSE AT BEDSIDE FOR ASSIST WITH SUCTION NEEDED. PT IS STILL AWARE, STATES WHEN HE NEEDS SUCTIONED.
--- NOTE | 2022-07-07 07:38 | NUR ---
Rn summary: Patient opens eyes, will ask to have mouth suctioned. Pt last medicated with Roxanol 20mg at 0640 for airhunger and moaning. Pt is resting easier and less frantic, respirations are shallow, Report to Jefry MCELROY. Pt continues with Mediport to rt chest wall and powerglide to JOSE. Continue comfort care per pt wishes, continues to ask for us to let him go. is to be back in town today.
--- NOTE | 2022-07-07 08:00 | NUR ---
PT SITTING IN BED. NON REBREATHER IN PLACE. DENIES PAIN AT THIS TIME. PT IS ABLE TO MAKE NEEDS KNOWN WITH SHORT YES/NO, BUT LITTLE ELSE. OUT OF STATES, BUT ON WAY PER PT. NO OTHER CONCERNS NOTED. BED IN LOW POSITION, CALL LITE IN REACH,BED ALARM ON FOR SAFETY
--- NOTE | 2022-07-07 11:09 | NUR ---
Comfort Care Visit Pt resting in bed upon arrival. Primary RN Jefry offering comfort medication for air hunger. Pt does report pain at insertion site of PEG tube and appears painful with swallow. Brief discussion about considering hospice. Pt sates "I have a dog that bites". Continued supportive visit. Pt's sister arrives and discussion took place out in [place] with Primary RN Jefry and this RN. Pt's spouse is still out of town and will be home tomorrow. Sister is planning to head back home today who is from out of state. Spoke with Dr Parikh and discussed case. Placed order for Fentanyl Patch 25mcg Q 3 days per V/O from Dr Parikh. Palliative Care will remain available.
--- NOTE | 2022-07-07 11:30 | NUR ---
1015 GAVE ROXANOL FOR PAIN AND AIR HUNGER. ORDERED UP HIFLO N/C FOR HIS COMFORT WOULD LIKE NONREBREATHER OFF IF CAN. 1130 HEPARIN FLUSHED MEDIPORT. DID NOT D/C LINE. PT HAS OTHER PERIPHERAL LINES. PLACED FENTANYL PATCH.
--- NOTE | 2022-07-07 13:21 | NUR ---
Spiritual care visit conducted. Pt is lying in bed and moaning. He only answers in short sentences and struggles to focus more than a few minutes at a time. When I asked pt what he is needing he says, "Let me go." I asked if he was talking about and he said, "Yes, I am ready now." After further discussion, I provided prayer for pt to which he repeated a strong "Amen" at its conclusion. I asked him what is most important to him now and he said, "My ." I asked him if he would like me to give her a call. I left the and called Chani (his spouse). She was very emotional on the phone. She told me that she is trying to get back home from a trip in [place] and said, "Please tell him I love him. He has to know this he dies before I get there. Tell him I love him." She became so emotional that she stated that she has to hang up and start trying to make it to the hospital. I then return to pt's and (with his mom and sister now present) I tell him of Chani's love and he opens his eyes and tells me thank you. I visit with family for another 40 minutes, providing emotional support and then let them have time with the pt alone. I will continue to remain available to pt and family.
--- NOTE | 2022-07-07 17:18 | NUR ---
DISCUSSED PAIN WITH PT. HE DENIES PAIN AT THIS TIME. DOES HAVE FENTANYL PATCH ON ANTERIOR LEFT SHOULDER. WILL FOLLOW
--- NOTE | 2022-07-07 18:15 | NUR ---
PT ON COMFORT CARE. FAMILY AT BEDSIDE MOST OF DAY. FLYING IN FROM OUT OF TOWN TONITES. PT ASKED FOR WATER AND SPRITE. GAVE. HE MORE AWAKE AT THIS MOMENT THAN HAS BEEN ALL DAY. HAS BEEN TURNED. PAIN MANAGED TO HIS SATISFACTION. FENTANYL PATCH LEFT ANTERIOR SHOULDER PLACED TODAY. STATES NOT IN PAIN MOST TIMES ASKED. NO NEW CONCERNS NOTED. BED IN LOW POSITOIN, CALL LITE IN REACH, FAMILY CALLS NEEDL
--- NOTE | 2022-07-08 06:41 | NUR ---
Rn ummry: Patient has been alert, aroues easily if sleeping, does own yankar suction. Patient has been drinking fluids. Pt medicated x 3 with 10 mg Roxanol, atropine drops x2. Pt medicated at 0630 with Ativan 1mg. is at bedside. Pt remains maybe a little better than when first transferred to [facility]. Repositioned for comfort. Martin cath with med orange urine, 375 cc's.
--- NOTE | 2022-07-08 18:31 | NUR ---
Pt's at bedside, multiple family members also in the room and lobby, approximately 15 people. Pt is sitting up, eyes open, able to report pain verbally. While I was at the bedside the pt was able to participate in conversation with a family member via video chat. Pt's stated she is "too scared" to take pt home with hospice. I asked her what this meant, and she began crying and said, "It's hard to watch him ". Her family remained nearby and all stated they would assist her and patient at home. reports she will speak more to family, and they will "figure out how to make it work". She gave me a hug, and the conversation ended. Notified Dr. Parikh. Will check in with pt in the morning.
--- NOTE | 2022-07-08 18:35 | NUR ---
COMFORT CARE SUMMARY PATIENT MEDICATED FOR PAIN X3. PATIENT ALSO HAS FENTANYL PATCH IN PLACE. PATIENT HAS SCHEDULED NAUSEA MEDICATION, PATIENT ALSO MEDICATED FOR NAUSEA X1 WITH PRN. PATIENT MEDICATED X1 WITH HI TYLENOL, PATIENT HAS HEADACHE AND IS VERY WARM TO TOUCH, DIAPHORETIC. PATIENT HAD MANY VISITORS TODAY. AT BEDSIDE ENTIRE SHIFT. REFILLED COMFORT CART. VERBAL ORDER TO DEACCESS MEDIPORT. PATIENT CALM, COMFORTABLE, AND SLEEPING AT END OF SHIFT.
--- NOTE | 2022-07-09 06:40 | NUR ---
SHIFT SUMMARY COMFORT CARE. NONRESPONSIVE & NONVERBAL. UNABLE TO FOLLOW DIRECTIONS OR OPEN EYES TO VERBAL STIMULI. PT HAS MOANED T/O NIGHT WITH LABOURED BREATHING & PERIODS OF APNEA UP TO 10-12 SECONDS, MEDICATED 3X c 20MG ROXANOL, 2X c 2MG IV MORPHINE & 2X c 1MG ATIVAN. TURNED & REPOSITIONED PER DECISION FOR COMFORT, SHE HAS BEEN AT BEDSIDE T/O NIGHT. CALL LIGHT IN REACH.
--- NOTE | 2022-07-09 19:22 | NUR ---
PATIENT TIME OF 1819. 2 RN VERIFIED. FAMILY AT BEDSIDE. DR. BERGERON NOTIFIED. PREFERRED HOME GIVEN TO CHARGE NURSE. FAMILY TOOK BELONGINGS HOME.
== END 2022-07-09 18:20 | DRG 871 ==
LOC: ER 15:37 → PCU 17:20 → ERHOLD 17:20 → ICUE 17:20 → PCU 18:40 → ICUE 07-02 16:19 → ICUW 07-04 19:19 → MEDS 07-06 23:02
PROVIDERS: Internal Medicine; Internal Medicine Critical Care Medicine; Physician Assistant; ADMIT Internal Medicine
PROC: 3E03329 Introduction of Other Anti-infective into Peripheral Vein, Percutaneous Approach (ICD-10-PCS; 2022-06-23)
PROC: 5A0955A Assistance with Respiratory Ventilation, Greater than 96 Consecutive Hours, High Flow/Velocity Cannula (ICD-10-PCS; 2022-06-26)
PROC: 5A09357 Assistance with Respiratory Ventilation, Less than 24 Consecutive Hours, Continuous Positive Airway Pressure (ICD-10-PCS; 2022-07-02)
PROC: 0DJ08ZZ Inspection of Upper Intestinal Tract, Via Natural or Artificial Opening Endoscopic (ICD-10-PCS; 2022-07-04)
PROC: 0DH63UZ Insertion of Feeding Device into Stomach, Percutaneous Approach (ICD-10-PCS; 2022-07-04)
PROC: 02HV33Z Insertion of Infusion Device into Superior Vena Cava, Percutaneous Approach (ICD-10-PCS; principal; 2022-07-05)
PROC: 0BH18EZ Insertion of Endotracheal Airway into Trachea, Via Natural or Artificial Opening Endoscopic (ICD-10-PCS; 2022-07-05)
PROC: 5A1935Z Respiratory Ventilation, Less than 24 Consecutive Hours (ICD-10-PCS; 2022-07-05)
PROC: 3E033XZ Introduction of Vasopressor into Peripheral Vein, Percutaneous Approach (ICD-10-PCS; 2022-07-06)
DX: A41.9 Sepsis, unspecified organism (principal); J18.9 Pneumonia, unspecified organism; J96.01 Acute respiratory failure with hypoxia; J69.0 Pneumonitis due to inhalation of food and vomit; C79.89 Secondary malignant neoplasm of other specified sites; E87.1 Hypo-osmolality and hyponatremia; E44.0 Moderate protein-calorie malnutrition; R65.20 Severe sepsis without septic shock; Z51.5 Encounter for palliative care; Z78.1 Physical restraint status; Z20.822 Contact with and (suspected) exposure to COVID-19; R13.12 Dysphagia, oropharyngeal phase; E87.6 Hypokalemia; E83.39 Other disorders of phosphorus metabolism; E83.51 Hypocalcemia; I10 Essential (primary) hypertension; Z98.890 Other specified postprocedural states; Z92.21 Personal history of antineoplastic chemotherapy; Z85.72 Personal history of non-Hodgkin lymphomas; Z92.3 Personal history of irradiation; Z88.8 Allergy status to other drugs, medicaments and biological substances; Z68.20 Body mass index [BMI] 20.0-20.9, adult; Z79.891 Long term (current) use of opiate analgesic; Z79.899 Other long term (current) drug therapy; C76.0 Malignant neoplasm of head, face and neck; Z82.49 Family history of ischemic heart disease and other diseases of the circulatory system; Z87.891 Personal history of nicotine dependence; Z86.16 Personal history of COVID-19
CPT/HCPCS: 0241U; 31500; 36415; 36600; 51702; 71045; 71260; 74230; 80048; 80053; 80202; 81000; 81001; 82330; 82803; 83605; 83735; 84100; 84145; 85025; 85027; 85610; 85730; 87040; 87070; 87205; 92526; 92610; 92611; 93005; 93010; 94002; 94003; 94640; 94660; 94664; 94760; 94761; 94762; 96365; 96375; 97110; 97112; 97161; 97530; 99285-25; A9270; C1751; J0295; J0330; J0456; J0696; J1642; J1650; J1940; J2060; J2250; J2270; J2405; J2543; J2550; J2704; J2765; J3010; J3370; J3480; J7030; J7040; J7050; J7060; J7120; Q9967